=== PATIENT | male | born 1950 ===

== ENCOUNTER 2022-06-26 14:52 | Inpatient (IN) ==
[2022-06-26] MEDS ORDERED: ONDANSETRON 4 MG/2 ML VIAL IV PRN (19:42)
[2022-06-26] MEDS ORDERED: MORPHINE 2 MG/1 ML SYRINGE IV PRN (19:42)
[2022-06-26] MEDS ORDERED: ENOXAPARIN 40 MG/0.4 ML SYRINGE SUBCUT ONE (19:44)
[2022-06-26] MEDS ORDERED: SODIUM CHLORIDE 0.9% 1,000 ML IV ONE (19:47)
[2022-06-26] MEDS ORDERED: ASPIRIN CHEW 81 MG TABLET PO ONE (19:47)
[2022-06-26] MEDS ORDERED: ENOXAPARIN 80 MG/0.8 ML SYRINGE SUBCUT ONE (20:00)
[2022-06-26 20:27] LABS: Basophils % 0.2 % (0.0-0.8); Hematocrit 24.4 VOL% (42.0-52.0); Hemoglobin 8.2 GM/DL (14.0-18.0); Immature Granulocytes % 0.8 %; Immature Granulocytes Absolute 0.08 #; Lymphocytes # 0.5 10*3/uL (1.4-4.0); Lymphocytes % 5.2 % (21.2-54.2); Mean Corpuscular HGB Conc 33.6 GM/DL (32-36); Mean Corpuscular Volume 84.7 FL (87-102); Mean Platelet Volume 11.2 FL (9.6-12.0); Monocytes # 0.4 10*3/uL (0.11-0.8); Monocytes % 4.2 % (1.7-12.7); Neutrophils % 89.6 % (38.7-73.9); Platelet Count 143 T/CUMM (130-400); Red Blood Count 2.88 MC/CUMM (3.8-5.5); Red Cell Distribution Width 14.6 % (9.3-17.3); White Blood Count 10.4 T/CUMM (4-12)
[2022-06-26 21:08] LABS: Albumin 2.3 G/DL (3.4-5.0); Bilirubin,Total 2.2 MG/DL (0.20-1.00); Calcium 7.4 MG/DL (8.5-10.1); Osmolality,Calculated 285.7 MOS/KG (273-304); Potassium 3.4 MMOL/L (3.5-5.1); Thyroid Stimulating Hormone 0.981 uIU/ml (0.358-3.74); Total Protein 5.9 G/DL (6.4-8.2)
[2022-06-26 21:24] LABS: Hepatitis B Core IgM Quant 0.08 Index; Hepatitis B Surface Ag Quant < 0.10 Index; Hepatitis B Surface Ag Result Non-Reactive (NonReactive); Hepatitis C Virus Ab Quant 0.02 Index; Hepatitis C Virus Ab Result Non-Reactive (NonReactive)
[2022-06-26] MEDS ORDERED: NITROGLYCERIN SL 0.4 MG TABLET SL ONE ×2 (21:55)
[2022-06-26] MEDS: cefTRIAXone 1,000 MG in SODIUM CHLORIDE 0.9% 100 ML IV SCH (22:01)
[2022-06-26] MEDS ORDERED: MAGNESIUM SULF RIDER 2 GM/50 ML PREMIX IV ONE (22:07)
[2022-06-26] MEDS: SODIUM CHLORIDE 0.9% 1,000 ML IV SCH (22:58)
[2022-06-26 23:22] LABS: Bacteria,Urine Occasional /HPF (Few); Hyaline Casts,Urine 4 /LPF (0-3); Mucus,Urine Occasional /LPF (Occasional); RBC,Urine 2 /HPF (0-4)
[2022-06-26 23:23] LABS: Bilirubin,Urine Negative (Negative); Blood, Urine Trace mg/dL (Negative); Glucose,Urine (UA) 250 mg/dL (Negative); Ketones,Urine Negative (Negative); Nitrite,Urine Negative (Negative); Protein,Urine 100 mg/dL (Negative); Urine Appearance Clear (Clear); Urine Color Yellow (Yellow); Urine Specific Gravity 1.025 (1.001-1.035)
[2022-06-27] MEDS ORDERED: ACETAMINOPHEN 325 MG TABLET PO ONE (00:26)
[2022-06-27] MEDS: ALBUTEROL 2.5 MG/3 ML NEB RESP TX SCH ×4 (00:51→19:11)
[2022-06-27 05:49] LABS: Basophils % 0.1 % (0.0-0.8); Hematocrit 24.7 VOL% (42.0-52.0); Hemoglobin 8.2 GM/DL (14.0-18.0); Immature Granulocytes % 0.9 %; Immature Granulocytes Absolute 0.11 #; Lymphocytes # 0.5 10*3/uL (1.4-4.0); Lymphocytes % 3.8 % (21.2-54.2); Mean Corpuscular HGB Conc 33.2 GM/DL (32-36); Mean Corpuscular Volume 84.9 FL (87-102); Mean Platelet Volume 11.5 FL (9.6-12.0); Monocytes # 0.6 10*3/uL (0.11-0.8); Monocytes % 4.9 % (1.7-12.7); Neutrophils % 90.3 % (38.7-73.9); Platelet Count 127 T/CUMM (130-400); Red Blood Count 2.91 MC/CUMM (3.8-5.5); Red Cell Distribution Width 14.6 % (9.3-17.3); White Blood Count 12.8 T/CUMM (4-12)
[2022-06-27 06:10] LABS: Calcium 7.4 MG/DL (8.5-10.1); Osmolality,Calculated 294.2 MOS/KG (273-304); Potassium 3.4 MMOL/L (3.5-5.1); Risk Ratio 6.83; VLDL Cholesterol 35.2 MG/DL
[2022-06-27 06:25] LABS: Band Neutrophils 3 % (0-10); Lymphocytes 2 % (20-55); Platelet Estimate Adequate; Total Cells Counted 100
[2022-06-27 06:26] LABS: Acanthocytes Few; Anisocytosis Slight; Burr Cells 1+
[2022-06-27] MEDS: CHOLECALCIFEROL 1,000 UNIT TABLET PO SCH (09:47)
[2022-06-27] MEDS: PANTOPRAZOLE 40 MG TABLET PO SCH (09:48)
[2022-06-27] MEDS: POTASSIUM CHLORIDE 20 MEQ TABLET PO SCH (09:48)
[2022-06-27] MEDS: ASPIRIN EC 81 MG TABLET PO SCH (09:48)
[2022-06-27] MEDS: TICAGRELOR 90 MG TABLET PO SCH ×2 (09:48→22:38)
[2022-06-27] MEDS ORDERED: SODIUM BICARBONATE 50 MEQ/50 ML VIAL IV ONE (11:21)
[2022-06-27] MEDS ORDERED: DEXTROSE 10% 250 ML BAG IV PRN (11:38)
[2022-06-27] MEDS ORDERED: DEXTROSE 50% 25 GM/50 ML VIAL IV PRN (11:38)
[2022-06-27] MEDS ORDERED: SODIUM BICARB INJ 50 MEQ in IV BAG 1 EACH IV ONE (12:00)
[2022-06-27] MEDS: SODIUM CHLORIDE 0.9% 1,000 ML IV SCH ×2 (12:15→17:12)
[2022-06-27 17:20] LABS: Calcium 7.5 MG/DL (8.5-10.1); Osmolality,Calculated 300.8 MOS/KG (273-304); Potassium 4.2 MMOL/L (3.5-5.1)
[2022-06-27] MEDS: INSULIN LISPRO 100 UNIT/ML SUBCUT SCH ×2 (18:31→22:39)
[2022-06-27] MEDS: ISOSORBIDE MONONITRATE 30 MG TABLET PO SCH (18:32)
[2022-06-27] MEDS: cefTRIAXone 1,000 MG in SODIUM CHLORIDE 0.9% 100 ML IV SCH (22:38)
[2022-06-27] MEDS: NITROGLYCERIN SL 0.4 MG TABLET SL PRN ×2 (22:38→23:01)
[2022-06-28] MEDS: ALBUTEROL 2.5 MG/3 ML NEB RESP TX SCH ×4 (00:05→19:28)
[2022-06-28 05:32] LABS: Albumin 2.2 G/DL (3.4-5.0); Bilirubin,Total 1.8 MG/DL (0.20-1.00); Calcium 7.4 MG/DL (8.5-10.1); Potassium 3.7 MMOL/L (3.5-5.1); Total Protein 6.1 G/DL (6.4-8.2)
[2022-06-28 05:44] LABS: Basophils % 0.1 % (0.0-0.8); Hematocrit 23.7 VOL% (42.0-52.0); Immature Granulocytes % 0.5 %; Immature Granulocytes Absolute 0.05 #; Lymphocytes # 0.8 10*3/uL (1.4-4.0); Lymphocytes % 8.1 % (21.2-54.2); Mean Corpuscular HGB Conc 33.8 GM/DL (32-36); Mean Corpuscular Volume 84.3 FL (87-102); Monocytes # 0.9 10*3/uL (0.11-0.8); Monocytes % 9.4 % (1.7-12.7); Neutrophils % 81.9 % (38.7-73.9); Platelet Count 108 T/CUMM (130-400); Red Blood Count 2.81 MC/CUMM (3.8-5.5); Red Cell Distribution Width 14.5 % (9.3-17.3); White Blood Count 9.6 T/CUMM (4-12)
[2022-06-28 06:11] LABS: Platelet Estimate Adequate
[2022-06-28 06:12] LABS: Anisocytosis 1+; Burr Cells 2+; Spherocytes Few; Tear Drop Cells Few
[2022-06-28] MEDS: SODIUM CHLORIDE 0.9% 1,000 ML IV SCH ×2 (06:41→20:43)
[2022-06-28] MEDS: INSULIN LISPRO 100 UNIT/ML SUBCUT SCH ×4 (07:46→20:42)
[2022-06-28] MEDS: PANTOPRAZOLE 40 MG TABLET PO SCH (09:16)
[2022-06-28] MEDS: POTASSIUM CHLORIDE 20 MEQ TABLET PO SCH (09:16)
[2022-06-28] MEDS: ASPIRIN EC 81 MG TABLET PO SCH (09:17)
[2022-06-28] MEDS: TICAGRELOR 90 MG TABLET PO SCH ×2 (09:17→20:42)
[2022-06-28] MEDS: CHOLECALCIFEROL 1,000 UNIT TABLET PO SCH (09:17)
[2022-06-28] MEDS: ISOSORBIDE MONONITRATE 30 MG TABLET PO SCH (16:45)
[2022-06-28] MEDS: carvediloL 3.125 MG TABLET PO SCH (16:45)
[2022-06-28] MEDS: NITROGLYCERIN SL 0.4 MG TABLET SL PRN ×2 (18:44→18:49)
[2022-06-28] MEDS: cefTRIAXone 1,000 MG in SODIUM CHLORIDE 0.9% 100 ML IV SCH (20:42)
[2022-06-29] MEDS: ALBUTEROL 2.5 MG/3 ML NEB RESP TX SCH ×4 (00:06→18:22)
[2022-06-29 04:50] LABS: Basophils % 0.2 % (0.0-0.8); Eosinophils # 0.1 10*3/uL (0.0-0.87); Eosinophils % 0.8 % (0.00-10.9); Hematocrit 24.7 VOL% (42.0-52.0); Hemoglobin 8.3 GM/DL (14.0-18.0); Immature Granulocytes % 1.4 %; Immature Granulocytes Absolute 0.12 #; Lymphocytes # 1.5 10*3/uL (1.4-4.0); Lymphocytes % 17.6 % (21.2-54.2); Mean Corpuscular HGB Conc 33.6 GM/DL (32-36); Mean Corpuscular Volume 84.9 FL (87-102); Mean Platelet Volume 11.5 FL (9.6-12.0); Monocytes # 1.1 10*3/uL (0.11-0.8); Monocytes % 12.9 % (1.7-12.7); NRBC # 0.02 10*3/uL; Neutrophils % 67.1 % (38.7-73.9); Platelet Count 116 T/CUMM (130-400); Red Blood Count 2.91 MC/CUMM (3.8-5.5); Red Cell Distribution Width 14.9 % (9.3-17.3); White Blood Count 8.7 T/CUMM (4-12)
[2022-06-29 05:12] LABS: Bilirubin,Total 1.1 MG/DL (0.20-1.00); Calcium 7.9 MG/DL (8.5-10.1); Osmolality,Calculated 291.8 MOS/KG (273-304); Total Protein 5.8 G/DL (6.4-8.2)
[2022-06-29 05:53] LABS: Platelet Estimate Adequate
[2022-06-29 05:54] LABS: Anisocytosis 1+; Burr Cells 2+
[2022-06-29] MEDS: INSULIN LISPRO 100 UNIT/ML SUBCUT SCH ×4 (07:38→21:19)
[2022-06-29] MEDS: POTASSIUM CHLORIDE 20 MEQ TABLET PO SCH (09:27)
[2022-06-29] MEDS: PANTOPRAZOLE 40 MG TABLET PO SCH (09:28)
[2022-06-29] MEDS: TICAGRELOR 90 MG TABLET PO SCH ×2 (09:28→21:16)
[2022-06-29] MEDS: CHOLECALCIFEROL 1,000 UNIT TABLET PO SCH (09:28)
[2022-06-29] MEDS: ASPIRIN EC 81 MG TABLET PO SCH (09:28)
[2022-06-29] MEDS: carvediloL 3.125 MG TABLET PO SCH ×2 (09:29→17:27)
[2022-06-29] MEDS: NITROGLYCERIN SL 0.4 MG TABLET SL PRN ×3 (11:02→11:13)
[2022-06-29] MEDS: SODIUM CHLORIDE 0.9% 1,000 ML IV SCH (11:16)
[2022-06-29] MEDS: ISOSORBIDE MONONITRATE 30 MG TABLET PO SCH (17:27)
[2022-06-29] MEDS: cefTRIAXone 1,000 MG in SODIUM CHLORIDE 0.9% 100 ML IV SCH (21:16)
[2022-06-30] MEDS: ALBUTEROL 2.5 MG/3 ML NEB RESP TX SCH ×4 (00:10→19:17)
[2022-06-30 04:35] LABS: Basophils % 0.3 % (0.0-0.8); Eosinophils # 0.2 10*3/uL (0.0-0.87); Eosinophils % 1.7 % (0.00-10.9); Hematocrit 23.8 VOL% (42.0-52.0); Hemoglobin 7.9 GM/DL (14.0-18.0); Immature Granulocytes % 2.9 %; Immature Granulocytes Absolute 0.27 #; Lymphocytes # 1.7 10*3/uL (1.4-4.0); Lymphocytes % 18.2 % (21.2-54.2); Mean Corpuscular HGB Conc 33.2 GM/DL (32-36); Mean Corpuscular Volume 85.6 FL (87-102); Mean Platelet Volume 12.2 FL (9.6-12.0); Monocytes % 10.7 % (1.7-12.7); Neutrophils % 66.2 % (38.7-73.9); Platelet Count 132 T/CUMM (130-400); Red Blood Count 2.78 MC/CUMM (3.8-5.5); Red Cell Distribution Width 15.1 % (9.3-17.3); White Blood Count 9.2 T/CUMM (4-12)
[2022-06-30 05:03] LABS: Bilirubin,Total 0.9 MG/DL (0.20-1.00); Calcium 8.1 MG/DL (8.5-10.1); Osmolality,Calculated 288.7 MOS/KG (273-304); Potassium 4.3 MMOL/L (3.5-5.1); Total Protein 5.8 G/DL (6.4-8.2)
[2022-06-30] MEDS: CHOLECALCIFEROL 1,000 UNIT TABLET PO SCH (09:52)
[2022-06-30] MEDS: POTASSIUM CHLORIDE 20 MEQ TABLET PO SCH (09:52)
[2022-06-30] MEDS: TICAGRELOR 90 MG TABLET PO SCH ×2 (09:52→21:30)
[2022-06-30] MEDS: ASPIRIN EC 81 MG TABLET PO SCH (09:52)
[2022-06-30] MEDS: carvediloL 3.125 MG TABLET PO SCH ×2 (09:52→18:06)
[2022-06-30] MEDS: PANTOPRAZOLE 40 MG TABLET PO SCH (09:52)
[2022-06-30] MEDS: INSULIN LISPRO 100 UNIT/ML SUBCUT SCH ×4 (09:59→21:31)
[2022-06-30] MEDS: SODIUM CHLORIDE 0.9% 1,000 ML IV SCH ×3 (14:02→19:25)
[2022-06-30] MEDS ORDERED: ISOSORBIDE MONONITRATE 60 MG TABLET PO SCH (17:00)
[2022-06-30] MEDS: cefTRIAXone 1,000 MG in SODIUM CHLORIDE 0.9% 100 ML IV SCH (21:31)
[2022-07-01] MEDS: ALBUTEROL 2.5 MG/3 ML NEB RESP TX SCH ×2 (00:15→07:58)
[2022-07-01 04:34] LABS: Basophils % 0.3 % (0.0-0.8); Eosinophils # 0.2 10*3/uL (0.0-0.87); Hematocrit 23.4 VOL% (42.0-52.0); Hemoglobin 7.6 GM/DL (14.0-18.0); Immature Granulocytes Absolute 0.35 #; Lymphocytes # 1.9 10*3/uL (1.4-4.0); Lymphocytes % 21.2 % (21.2-54.2); Mean Corpuscular HGB Conc 32.5 GM/DL (32-36); Monocytes # 0.9 10*3/uL (0.11-0.8); Monocytes % 9.9 % (1.7-12.7); NRBC # 0.03 10*3/uL; Neutrophils % 62.6 % (38.7-73.9); Platelet Count 157 T/CUMM (130-400); Red Blood Count 2.72 MC/CUMM (3.8-5.5); Red Cell Distribution Width 15.4 % (9.3-17.3); White Blood Count 8.8 T/CUMM (4-12)
[2022-07-01 05:05] LABS: Albumin 1.9 G/DL (3.4-5.0); Bilirubin,Total 0.7 MG/DL (0.20-1.00); Calcium 7.8 MG/DL (8.5-10.1); Osmolality,Calculated 287.8 MOS/KG (273-304); Potassium 4.4 MMOL/L (3.5-5.1); Total Protein 5.6 G/DL (6.4-8.2)
[2022-07-01] MEDS: INSULIN LISPRO 100 UNIT/ML SUBCUT SCH ×2 (07:46→13:16)
[2022-07-01] MEDS: POTASSIUM CHLORIDE 20 MEQ TABLET PO SCH (09:23)
[2022-07-01] MEDS: TICAGRELOR 90 MG TABLET PO SCH (09:23)
[2022-07-01] MEDS: PANTOPRAZOLE 40 MG TABLET PO SCH (09:23)
[2022-07-01] MEDS: ASPIRIN EC 81 MG TABLET PO SCH (09:23)
[2022-07-01] MEDS: carvediloL 3.125 MG TABLET PO SCH (09:24)
[2022-07-01] MEDS: CHOLECALCIFEROL 1,000 UNIT TABLET PO SCH (09:24)
[2022-07-01 09:50] LABS: Total Protein 5.9 G/DL (6.4-8.2)
[2022-07-01 12:02] VITALS: BP 132/55
[2022-07-01] MEDS ORDERED: cefTRIAXone 1,000 MG in SODIUM CHLORIDE 0.9% 100 ML IV ONE (12:55)
[2022-07-01] MEDS: SODIUM CHLORIDE 0.9% 1,000 ML IV SCH (14:57)
[2022-07-02 07:29] LABS: Immunoglobulin A (Chem) 260 MG/DL (70-400); Immunoglobulin G (Chem) 919 MG/DL (700-1600); Immunoglobulin M (Chem) 82 MG/DL (40-230); Total Protein (Chem) 5.9 G/DL (6.4-8.3)
[2022-07-02 08:52] LABS: Albumin (SPE) Rel % 51.1 %; Alpha 1 (SPE) 0.3 G/DL (0.1-0.4); Alpha 1 (SPE) Rel % 4.4 %; Alpha 2 (SPE) 0.8 G/DL (0.4-1.0); Alpha 2 (SPE) Rel % 13.5 %; Beta (SPE) 0.9 G/DL (0.5-1.1); Beta (SPE) Rel % 14.6 %; Gamma (SPE) Rel % 16.4 %
== END 2022-07-01 15:11 | disposition home or self-care (01) | DRG 871 ==
LOC: N.TELEN → OBSVTOIN 16:57 → SUATTDRO 16:57
PROVIDERS: ADMIT Internal Medicine; ATTEND Internal Medicine Geriatric Medicine